=== PATIENT | female | born 2005 | race American Indian/Alaskan Native ===

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

== ENCOUNTER 2025-03-23 15:41 | Emergency (ER) | payer SELFPAY ==
[2025-03-23] MEDS ORDERED: Sodium Chloride 0.9% 10 ML Syringe FLUSH PRN (16:18)
[2025-03-23 16:32] LABS: BASOPHILS PERCENT AUTO 0.1 % (0.0-1.0); EOSINOPHILS PERCENT AUTO 0.9 % (1.0-3.0); LYMPHOCYTES PERCENT AUTO 9.8 % (20.5-50.1); MONOCYTES PERCENT AUTO 6.5 % (2-8); NEUTROPHILS PERCENT AUTO 82.7 % (42.2-75.2); PLATELET COUNT,PLT 459 10^3/uL (150-450); RED BLOOD CELL COUNT 5.50 10^6/uL (4.2-5.4); WHITE BLOOD CELL COUNT,WBC 19.7 10^3/uL (5.0-10.0)
[2025-03-23 16:48] LABS: BLOOD UREA NITROGEN,BUN 12.0 mg/dL (7-18); CARBON DIOXIDE,CO2 27.0 mmol/L (21-32); CHLORIDE,CL 104.0 mmol/L (98-107); CREATININE 0.75 mg/dL (0.55-1.02); EST CRCL DRUG DOSING (CG) 100.04 mL/min; ESTIMATED GFR 118.0 mL/min (>=60); GLUCOSE RANDOM 126.0 mg/dL (70-99); POTASSIUM,K 3.4 mmol/L (3.5-5.1); SODIUM,NA 139.0 mmol/L (136-145)
[2025-03-23 18:55] VITALS: BP 120/67; PULSE 82
[2025-03-23] MEDS: Ondansetron 4 MG/2 ML SDV IVPUSH ONE (19:03)
[2025-03-23] MEDS: Potassium Chloride 10 MEQ Tab.ER PO ONE (19:26)
[2025-03-23] MEDS: Clindamycin in 0.9 % Sod Chlor 300 MG in Premix Bag 1 BAG IV ONE (19:34)
[2025-03-23 20:19] LABS: A/G RATIO 0.63; ALANINE AMINOTRANSFERASE,ALT 14.0 U/L (14-59); ASPARTATE AMNIOTRANSFERASE,AST 9.0 U/L (15-37); BILIRUBIN TOTAL 0.4 mg/dL (0.2-1.0); BLOOD UREA NITROGEN,BUN 11.0 mg/dL (7-18); CARBON DIOXIDE,CO2 27.0 mmol/L (21-32); CHLORIDE,CL 105.0 mmol/L (98-107); CREATININE 0.69 mg/dL (0.55-1.02); EST CRCL DRUG DOSING (CG) 108.74 mL/min; ESTIMATED GFR 128.0 mL/min (>=60); GLUCOSE RANDOM 118.0 mg/dL (70-99); POTASSIUM,K 3.5 mmol/L (3.5-5.1); PROTEIN TOTAL,TP 6.7 g/dL (6.4-8.2); SODIUM,NA 140.0 mmol/L (136-145)
== END 2025-03-23 20:25 ==
LOC: DL.ED 15:41
DX: S50.352A Superficial foreign body of left elbow, initial encounter (principal); L02.414 Cutaneous abscess of left upper limb; L03.114 Cellulitis of left upper limb; Z79.899 Other long term (current) drug therapy; W45.8XXA Other foreign body or object entering through skin, initial encounter
CPT/HCPCS: 10060; 36415; 73080; 80048; 80053; 82550; 83605; 84703; 85025; 87040; 87070; 87077; 87186; 93005; 96365; 96366; 96367; 96375; 99285; A9270; J0692; J0737; J3370; J7030; J7050